=== PATIENT | male | born 1950 | race Caucasian/White ===

== ENCOUNTER → 2018-01-28 | Outpatient (CLI) | payer MEDICARE, BC ==
--- NOTE | 2018-01-28 15:25 | CTL ---
EXAMINATION TYPE: CT Low Dose Lung DATE OF EXAM ORDERED: 01/28/2018 HISTORY: 67-year-old male. Lung cancer screening CT DLP: 103.[address] CTDI: 3.2 mGy Automated exposure control for dose reduction was used. SCREENING VISIT: Baseline COMPARISON: None TECHNIQUE: Low dose computed tomography scan was performed through the chest at 1 mm thick sections a nd reconstructed images in the coronal and sagittal plane. Additional coronal MIP reconstructions. CT DIAGNOSTIC QUALITY: Satisfactory FINDINGS: Heart normal size without pericardial effusion. Coronary vessel calcifications are present. Aorta normal caliber with bovine configuration as well as variant direct takeoff of the left vertebra l artery directly from the aortic arch. Scattered nonenlarged mediastinal lymph nodes are present, largest precarinal measuring 8 mm. Mild diffuse bronchial wall thickening is noted with biapical pleural parenchymal scarring and modera te centrilobular emphysema especially in the upper lungs. Dependent atelectasis is noted without consolidation or pleural effusion. 8 mm and adjacent 5 mm pulmonary nodule in the inferior lingula, refer to axial images 199 and 206. Additional 4 mm pulmonary nodule inferior lingula just cephalad in location, axial image 167. Some additional adjacent strandy atelectasis in the inferior lingula. Visualized upper abdomen shows a gastric fundal diverticulum projecting posteriorly. Bones: Mild multiple level degenerative disc disease. No osseous destructive process. IMPRESSION: 1. LungRADS 4A (suspicious, 5-15% chance of malignancy) - three inferior lingular pulmonary nodules m easuring up to 8 mm. 2. COPD with moderate emphysema. 3. CAD. RECOMMENDATION: 1. Three-month follow-up with low-dose CT. 2. Smoking cessation. FOLLOW UP CT CHEST RECOMMENDATION: [address] LUNG RAD: Lung-Rad 4A Suspicious
== END | disposition home or self-care (01) ==
LOC: RADCTMAIN 12:50
PROVIDERS: ATTEND Internal Medicine Hematology & Oncology
DX: Z12.2 Encounter for screening for malignant neoplasm of respiratory organs (principal); R91.8 Other nonspecific abnormal finding of lung field; J43.9 Emphysema, unspecified; I25.10 Atherosclerotic heart disease of native coronary artery without angina pectoris; F17.210 Nicotine dependence, cigarettes, uncomplicated

== ENCOUNTER → 2018-03-20 | Outpatient (CLI) | payer MEDICARE, BC ==
[~2018-03-20] MED LIST: REGADENOSON 0.4 MG/5 ML SYRINGE IV ONE
--- NOTE | 2018-03-20 11:16 | NM ---
EXAMINATION TYPE: NM stress lexiscan cardiolite DATE OF EXAM: 03/20/2018 COMPARISON: NONE HISTORY: Atherosclerotic heart disease wainwright Coronary vessels TECHNIQUE: After the intravenous administration of 10 mCi Tc 99m Sestamibi - Cardiolite resting SPEC T images acquired 45 minutes post injection. The patient received 0.4mg Lexiscan, 25.3 mCi Tc 99m Sestamibi - Stress images obtained [address] injection FINDINGS: Review of stress and rest SPECT images demonstrates no distinct perfusion abnormality. Gated analysi s shows normal wall motion with an estimated left ventricular ejection fraction of 51 %. There may be some dyskinesia at the cardiac apex. IMPRESSION: 1. No stress-induced ischemic change. 2. Mild dyskinesia of the cardiac apex. 3. There is a normal ejection fraction of 51%.
--- NOTE | 2018-03-20 12:03 | ECHOF ---
Referral Reason:I25.10 Atherosclerotic heart disease MEASUREMENTS -------- HEIGHT: 177.8 cm WEIGHT: 93.0 kg BP: 125/78 RVIDd: 3.5 cm (< 3.3) IVSd: 1.1 cm (0.6 - 1.1) LVIDd: 4.4 cm (3.9 - 5.3) LVPWd: 1.1 cm (0.6 - 1.1) IVSs: 1.4 cm LVIDs: 3.2 cm LVPWs: 1.5 cm LA Diam: 3.8 cm (2.7 - 3.8) LAESV Index (A-L): 19.54 ml/m Ao Diam: 3.2 cm (2.0 - 3.7) AV Cusp: 2.1 cm (1.5 - 2.6) MV EXCURSION: 16.312 mm (> 18.000) MV EF SLOPE: 87 mm/s (70 - 150) EPSS: 0.3 cm MV E Tono: 0.60 m/s MV DecT: 300 ms MV A Tono: 0.79 m/s MV E/A Ratio: 0.76 RAP: 5.00 mmHg RVSP: 29.66 mmHg FINDINGS -------- Sinus rhythm. This was a technically good study. The left ventricular size is normal. There is borderline concentric left ventricular hypertrophy. Overall left ventricular systolic function is normal with, an EF between 55 - 60 %. The right ventricle is mildly enlarged. Normal LA size by volume 22+/-6 ml/m2. The right atrium is normal in size. The aortic valve is trileaflet and appears structurally normal. The mitral valve is normal. Mild tricuspid regurgitation present. Right ventricular systolic pressure is normal at < 35 mmHg. The right ventricular systolic pressure, as measured by Doppler, is 29.66mmHg. There is no pulmonic regurgitation present. The aortic root size is normal. Normal inferior vena cava with normal inspiratory collapse consistent with estimated right atrial pre ssure of 5 mmHg. There is no pericardial effusion. CONCLUSIONS -------- 1. Sinus rhythm. 2. This was a technically good study. 3. The left ventricular size is normal. 4. There is borderline concentric left ventricular hypertrophy. 5. Overall left ventricular systolic function is normal with, an EF between 55 - 60 %. 6. The right ventricle is mildly enlarged. 7. Normal LA size by volume 22+/-6 ml/m2. 8. The aortic valve is trileaflet and appears structurally normal. 9. The mitral valve is normal. 10. Mild tricuspid regurgitation present. 11. Right ventricular systolic pressure is normal at < 35 mmHg. 12. There is no pulmonic regurgitation present. 13. The aortic root size is normal. 14. Normal inferior vena cava with normal inspiratory collapse consistent with estimated right atrial pressure of 5 mmHg. 15. There is no pericardial effusion. CREATIVE PROJECT MANAGER: Tracy John RDCS
--- NOTE | 2018-03-20 13:12 | EST ---
EXERCISE STRESS DATE OF SERVICE: 03/20/2018 AGE: 68 SEX: Male HT: 5'10" WT: 205 pounds PROTOCOL: Lexiscan Cardiolite STAGE: DURATION OF EXERCISE: HEART RATE REST: 58 BLOOD PRESSURE REST: 122/67 MAXIMUM HEART RATE ACHIEVED: 92 MAXIMUM BLOOD PRESSURE: 145/65 85% MPHR: 131 100% MPHR: 154 METS: INDICATIONS: Physical. CLINICAL INFORMATION: Baseline rhythm is sinus mechanism, rate of 58, normal axis and intervals, normal electrocardiogram. Baseline blood pressure 122/67 mmHg. Patient received an injection of Lexiscan. Electrocardiographic monitoring revealed no evidence of diagnostic ischemic ST deviation. Cardiolite was injected per protocol. CONCLUSION: 1. Nondiagnostic electrocardiograph stress testing. 2. Nuclear images will be reported separately. MMODL / IJN: [id number] /
== END | disposition home or self-care (01) ==
LOC: RADNMMAIN 08:06
PROVIDERS: ATTEND Internal Medicine
DX: G24.9 Dystonia, unspecified (principal); I25.10 Atherosclerotic heart disease of native coronary artery without angina pectoris
CPT/HCPCS: 93017; 93306; 78452; A9500; J2785

== ENCOUNTER → 2018-04-21 | Outpatient (CLI) | payer MEDICARE, BC ==
--- NOTE | 2018-04-21 11:21 | CT ---
EXAMINATION TYPE: CT chest w con DATE OF EXAM: 04/21/2018 COMPARISON: 01/28/2018 HISTORY: 68-year-old male high white blood cell count TECHNIQUE: Contiguous axial scanning of the chest after the administration of 100 mL of Isovue 300. Coronal/sagittal reconstructions performed. CT DLP: 418.20mGycm. Automatic exposure control utilized for a dose reduction. FINDINGS: Heart normal size without pericardial effusion. Coronary vessel calcifications are present. Aorta normal caliber with variant direct takeoff of the left vertebral artery directly from the aorti c arch. Borderline sized caliber to the main right pulmonary artery at 2.7 cm may reflect underlying pulmonar y arterial hypertension. Scattered nonenlarged mediastinal lymph nodes. No thoracic lymphadenopathy by CT size criteria. Moderate centrilobular emphysema particularly in the upper lungs along with some paraseptal emphysema . Elongated 7 mm pulmonary nodule along the minor fissure is unchanged for nearly 3 months, axial image 34. 7 mm inferior lingular pulmonary nodule slightly castañeda in appearance versus 5 mm just under 3 months ago, axial image 48. Tiny 3 mm inferior lingular pulmonary nodule axial image 41 is smaller. 4 mm inferiorly on the nodule axial image 50 a smaller. There is a posteriorly directed gastric fundal diverticulum. Bones: No osseous destructive process. Mild degenerative disc disease in the thoracic spine. IMPRESSION: 1. COPD. 2. 3 inferior lingular pulmonary nodules redemonstrated. The 2 smaller nodules have decreased in size suggesting a benign etiology. The larger nodule appears more full now measuring 7 mm. Continued foll ow-up recommended in 3 months. Small early focus of lung cancer not excluded at this time. However, a benign etiology remains possible.
== END | disposition home or self-care (01) ==
LOC: RADCTMAIN 09:45
PROVIDERS: ATTEND Internal Medicine Hematology & Oncology
DX: J44.9 Chronic obstructive pulmonary disease, unspecified (principal); R91.8 Other nonspecific abnormal finding of lung field
CPT/HCPCS: 71260; 82565; 84520

== ENCOUNTER → 2021-02-08 | Outpatient (CLI) | payer MEDICARE, BC ==
--- NOTE | 2021-02-08 11:10 | XR ---
EXAMINATION TYPE: XR lumbosacral spine min 4V DATE OF EXAM: 02/08/2021 COMPARISON: None HISTORY: Back pain TECHNIQUE: 5 view lumbar spine FINDINGS: There are 5 lumbar-type vertebral bodies. The pedicles are intact. Some mild posterior disc space narrowing is present at L2-3 L3-4 L4-5. Remaining disc heights are preserved. Facets are jazzy l. No spondylolytic defects are evident. Alignment is normal. Note is made of vascular calcification within the aorta. IMPRESSION: 1. Mild degenerative disc changes lower lumbar spine
== END | disposition home or self-care (01) ==
LOC: RADXRYALE 09:03
PROVIDERS: ATTEND Family Medicine
DX: M51.36 Other intervertebral disc degeneration, lumbar region (principal)
CPT/HCPCS: 72110

== ENCOUNTER → 2021-03-14 | Outpatient (CLI) | payer MEDICARE, BC ==
--- NOTE | 2021-03-15 08:26 | US ---
EXAMINATION TYPE: US thyroid st tissue head/neck DATE OF EXAM: 03/14/2021 COMPARISON: NONE CLINICAL HISTORY: E03.9 Hypothyroidism. abn labs, on meds, no symptoms GLAND SIZE: Right Lobe: 4.2 x 1.3 x 1.5 cm Overall Parenchyma: heterogenous Left Lobe: 2.9 x 1.1 x 1.3 cm Overall Parenchyma: heterogeneous Isthmus Thickness: 0.2 cm NODULES RIGHT: # of nodules measured on right: 0 LEFT: # of nodules measured on left: 0 ISTHMUS: # of nodules measured in the isthmus: 0 Bilateral neck scanned, no evidence of lymphadenopathy. IMPRESSION: Normal thyroid ultrasound.
== END | disposition home or self-care (01) ==
LOC: RADUSWWP 16:56
PROVIDERS: ATTEND Family Medicine
DX: E03.9 Hypothyroidism, unspecified (principal)
CPT/HCPCS: 76536

== ENCOUNTER 2023-02-27 10:16 | Day surgery (SDC) | payer MEDICARE, BC ==
[2023-02-25 14:53] VITALS: BMI 28.3
[~2023-02-27 10:16] MED LIST changes: +LACTATED RINGERS 1,000 ML IV SCH; +LIDOCAINE 1% (10MG/ML) FOR IV START INTRADERMA PRN; -REGADENOSON 0.4 MG/5 ML SYRINGE IV ONE
[2023-02-27 11:18] VITALS: TEMP 97.2
[2023-02-27] MEDS ORDERED: PROPOFOL 10 MG/ML 20 ML VIAL IV ONE (12:16)
[2023-02-27] MEDS ORDERED: LIDOCAINE 1% INJ 10MG/ML (20 ML MDV) ONE (12:16)
--- NOTE | 2023-02-27 12:39 | P.PCN ---
Date of Procedure: 02/27/23 Procedure(s) Performed: BRIEF HISTORY: Patient is a 72-year-old pleasant white male scheduled for an elective colonoscopy as a part of screening for colon cancer/polyps cologuard. PROCEDURE PERFORMED: Colonoscopy with snare polypectomy. PREOPERATIVE DIAGNOSIS: Screening for colon cancer/positive cologuard. IV sedation per Anesthesia. PROCEDURE: After informed consent was obtained, the patient, was brought into the endoscopy unit. IV sedation was administered by Anesthesia under continuous monitoring. Digital rectal examination was normal. Initially the Olympus CF-160 flexible video colonoscope was then inserted in the rectum, gradually advanced into the cecum without any difficulty. Careful examination was performed as the scope was gradually being withdrawn. Ileocecal valve and the appendiceal orifice were visualized and appeared normal. Prep was excellent. Mucosa of the cecum, ascending colon, transverse colon, normal. In the descending colon there were 2 polyps measuring between 7 mm and 8 mm in size both of which were removed by cold snare polypectomy. In the sigmoid there was a 5 limited polyp that was removed by cold snare polypectomy. In the rectum there was another 5 mm polyp that was removed by cold snare polypectomy. Retroflexion was performed in the rectum and no lesions were seen. The patient tolerated the procedure well. IMPRESSION: 7 mm to 8 mm descending colon polyp status post cold snare polypectomy 5 mm; sigmoid polyp status post cold snare polypectomy 5 mm rectal polyp status post cold snare polypectomy RECOMMENDATIONS: Findings of this examination were discussed with the patient as well as his family.. He was advised to follow with the biopsy results. If the biopsy results adenoma he can have a repeat colonoscopy in 3 years
[2023-02-27 13:17] VITALS: BP 119/74; PULSE 57; RESP 18
== END 2023-02-27 13:24 | disposition home or self-care (01) ==
LOC: ORWHC2ENDO 10:16
PROVIDERS: ATTEND Internal Medicine Gastroenterology
DX: Z12.11 Encounter for screening for malignant neoplasm of colon (principal); D12.4 Benign neoplasm of descending colon; D12.5 Benign neoplasm of sigmoid colon; D12.8 Benign neoplasm of rectum; R19.5 Other fecal abnormalities; E78.5 Hyperlipidemia, unspecified; N42.89 Other specified disorders of prostate; F17.200 Nicotine dependence, unspecified, uncomplicated; E07.9 Disorder of thyroid, unspecified; Z79.890 Hormone replacement therapy; Z79.82 Long term (current) use of aspirin; Z79.899 Other long term (current) drug therapy
CPT/HCPCS: 88305; 45385; J2001; J2704